=== PATIENT | male | born 1985 | race Caucasian/White ===

== ENCOUNTER 2021-09-02 11:59 | Emergency (ER) | payer OTHER, SELFPAY ==
[2021-09-02 12:29] VITALS: BP 131/70; PULSE 100; RESP 18; TEMP 36.8; O2SAT 98
--- NOTE | 2021-09-02 12:42 | ED.ABDPAIN ---
HPI - Abdominal Pain General Chief Complaint: Abdominal Pain Stated Complaint: abdominal pain Time Seen by Provider: 09/02/21 12:39 Source: patient, RN notes reviewed and old records reviewed Mode of arrival: ambulatory Limitations: no limitations History of Present Illness HPI narrative: 35-year-old male presents to [facility] with 2-day history of left abdominal pain which has increased in intensity today. Patient reports that his pain started in his left testicle and now pain is localized in his left lower abdomen and goes toward his right abdomen. Patient denies any nausea or vomiting, frequent stools denies any constipations. Patient is unable to stand erect due to acute abdominal pain.Patient denies any trauma to his abdomen, denies any burning or pain with urination, denies any flank pain. Related Data Home Medications Medication Instructions Recorded Confirmed dextroamphetamine-amphetamine 20 mg PO DAILY 09/02/21 09/02/21 [Adderall XR] Allergies Allergy/AdvReac Type Severity Reaction Status Date / Time No Known Allergies Allergy Verified 09/02/21 13:06 Review of Systems Review of Systems: CONSTITUTIONAL: Denies fever, chills, or sweats. EYES: Denies visual changes, redness, or discharge. ENT: Denies rhinorrhea, congestion, sore throat, or otalgia. CARDIOVASCULAR: Denies chest pain, palpitations, or edema. RESPIRATORY: Denies cough or dyspnea. GASTROINTESTINAL: positive for lower left acute abdominal pain with some radiation towards right abdomen also some initial left testicle pain,no nausea or vomiting, no diarrhea but frequent stools. GENITOURINARY: Denies dysuria or hematuria, some left testicle pain initially SKIN: Denies rash or itching. MUSCULOSKELETAL: Denies back pain, joint pain, or myalgia. NEUROLOGIC: Denies headache, numbness, or weakness. PSYCHIATRIC: Denies anxiety or depression. All systems reviewed & are unremarkable except as noted in HPI and below PMFSH Past Medical History Medical History (Updated 09/02/21 @ 12:46 by Isi Liao NP) ADHD (attention deficit hyperactivity disorder) Surgical History Surgical History (Updated 09/02/21 @ 12:44 by Isi Liao NP) H/O vasectomy 8 months ago Hx of appendectomy Social History Social History (Updated 09/02/21 @ 14:10 by Isi Liao NP) Smoking status: Never smoker Alcohol intake: current Alcohol use details: social Substance use: never Living arrangements: with family Gender identity (if verbalized by the patient): Male Comments At time of signature, agree with nursing past medical, surgical, social and family history. There is no relevant family history pertinent to the presenting complaint Exam Narrative: GENERAL:ill-appearing, well-nourished, and in no some acute distress. HEAD: Normocephalic, atraumatic. EYES: PERRLA and EOMI. ENT: Nares clear, no rhinorrhea or epistaxis. Mucous membranes moist. NECK: Supple.no lymphadenopathy CHEST: Clear to auscultation. No respiratory distress.SAO2 98% on room air HEART: Regular rate and rhythm. No murmur heard. Normal peripheral pulses. ABDOMEN: Soft, tender to left abdomen, distended, normal active bowel sounds. EXTREMITIES: Normal range of motion. No edema. SKIN: Warm, dry, no rash. NEURO: No focal deficits. Alert and oriented x3. Course Vital Signs Vital signs: Vital Signs Temperature 36.8 C 09/02/21 12:29 Pulse Rate 100 09/02/21 12:29 Respiratory Rate 18 09/02/21 12:29 Blood Pressure 131/70 09/02/21 12:29 Pulse Oximetry 98 09/02/21 12:29 Temperature 36.8 C 09/02/21 12:29 Pulse Rate 100 09/02/21 12:29 Respiratory Rate 18 09/02/21 12:29 Blood Pressure 131/70 09/02/21 12:29 Pulse Oximetry 98 09/02/21 12:29 Transfer Transfered to: [facility] Transportation: Other (private car) Transfer rationale: acute left abdominal pain and left testicle pain Accepting physician: Urbano Brewer comments: Patient lin
== END 2021-09-02 12:42 | disposition short-term general hospital (02) ==
PROVIDERS: Emergency Provider Registered Nurse; PCP Internal Medicine
DX: R10.32 Left lower quadrant pain (principal); F90.9 Attention-deficit hyperactivity disorder, unspecified type; Z98.52 Vasectomy status
CPT/HCPCS: 99212; G0463

== ENCOUNTER 2021-09-02 12:55 | Emergency (ER) | payer OTHER, SELFPAY ==
--- NOTE | ~2021-09-02 | CT_ITS ---
EXAMINATION: CT abdomen pelvis w con INDICATION: Left lower quadrant pain TECHNIQUE: Computed tomographic images of the abdomen and pelvis were obtained after the administrati on of 100 cc of Omnipaque 350 intravenous contrast. The dose-length product (DLP) was 1720.09 mGy-cm. Automated exposure control and iterative reconstruction technique were employed. COMPARISON: None available FINDINGS: The lung bases are clear. The heart size is normal. The spleen, pancreas, gallbladder, and adrenal glands are normal. Subcapsular areas of increased attenuation of the liver likely reflect tra nsient hepatic attenuation difference. The kidneys are unremarkable. No pathologically enlarged abdom inal or pelvic lymph nodes are identified. There is no free intraperitoneal gas or evidence of bowel obstruction. Colonic diverticula are noted. There is an area of diverticular inflammation in the dist al descending colon without evidence of perforation or abscess. A small fat-containing umbilical bruno ia is noted. IMPRESSION: 1. Acute diverticulitis of the distal descending colon. Reviewed, dictated and finalized at location B.
[2021-09-02 13:03] VITALS: BP 137/85; PULSE 107; RESP 17; TEMP 36.3; O2SAT 96
[2021-09-02 14:11] LABS: Basophils Absolute Auto 0.1 K/mm3 (0.0-0.1); Basophils Percent Auto 0.4 % (0.2-1.2); Eosinophils Absolute Auto 0.1 K/mm3 (0-0.3); Hemoglobin 16.6 g/dL (14.0-18.0); Immature Granulocyte Absolute 0.05 K/mm3 (0.00-0.031); Immature Granulocyte Percent A 0.4 % (0-0.5); Lymphocytes Absolute Auto 2.58 K/mm3 (0.9-3.2); Mean Corpuscular HGB Conc 34.6 g/dl (32-36); Mean Corpuscular Volume 86.8 fl (80-100); Mean Platelet Volume 11.7 fl (7.4-10.4); Monocytes Absolute Auto 0.9 K/mm3 (0.1-0.6); Monocytes Percent Auto 6.8 % (2.6-8.5); Neutrophils Absolute Auto 9.9 K/mm3 (1.3-6.7); Neutrophils Percent Auto 72.4 % (45.5-73.1); Platelet Count Result 241 k/mm3 (150-375); Red Blood Count 5.53 M/mm3 (4.6-6.20); Red Cell Distribution Width 12.9 % (11.5-14.5); White Blood Count 13.6 K/mm3 (4.5-10.0)
[2021-09-02 14:18] LABS: Add Urine Microscopic? NO; Appearance Urine Clear (Clear); Bilirubin Urine Negative (Negative); Blood Urine Negative (Negative); Color Urine Yellow (Yellow); Glucose Urine UA Negative (Negative); Ketones Urine Negative (Negative); Leukocyte Esterase Ur Negative LEU/UL (Negative); Nitrate Urine Negative (Negative); Protein Urine Negative (Negative); Urobilinogen Urine Negative mg/dL (<2.0)
[2021-09-02 14:27] LABS: Alanine Aminotransferase 64 U/L (4-50); Albumin Level 5.2 g/dL (3.5-5.1); Alkaline Phosphatase 79 U/L (38-126); Anion Gap 13 mmol/L (8-16); Aspartate Amino Transferase 31 U/L (17-59); Bilirubin,Total 0.7 mg/dL (0.2-1.3); Blood Urea Nitrogen 16 mg/dL (9-20); Calcium 10.3 mg/dL (8.4-10.2); Carbon Dioxide 25 mmol/L (22-30); Chloride 101 mmol/L (98-107); Estimated CRCL calculation 132 ml/min; Estimated Glomerular Filt Rate > 60; Glucose 88 mg/dL (65-110); Lipase 53 U/L (23-300); Sodium 139 mmol/L (137-145)
[2021-09-02] MEDS: LACTATED RINGERS 1,000 ML 999 ML IV CONT (14:33)
[2021-09-02] MEDS: fentaNYL CITRATE INJ (*CRX) 100 MCG/2 ML VIAL 50 MCG IV PUSH (14:33)
[2021-09-02] MEDS: metroNIDAZOLE 500 MG/ISO 100ML 500 MG/100 ML BAG 100 MG IVPB (15:53)
[2021-09-02 15:59] VITALS: BP 127/78; PULSE 90; RESP 16; O2SAT 99
[2021-09-02 16:00] VITALS: BP 121/74; PULSE 88; RESP 16; O2SAT 97
[2021-09-02] MEDS: HYDROcodone/acetaminophen (*CRX) 7.5-325 MG TABLET 1 TAB PO (16:10)
--- NOTE | 2021-09-02 16:17 | ED.ABDPAIN ---
HPI - Abdominal Pain General Chief Complaint: Abdominal Pain Stated Complaint: LLQ, testicular pain Time Seen by Provider: 09/02/21 13:03 Source: patient Mode of arrival: ambulatory Limitations: no limitations History of Present Illness HPI narrative: 35-year-old male Presents complaining of a 2-day history of of pain in his lower abdomen which is getting worse He felt like the pain began kind of low almost in the testicle and is since moved up and kind of settled a little bit higher up in the left lower quadrant It is much worse if he moves around or pushes on it, he had a bowel movement that did not relieve it, and he does not have any urinary symptoms He has not had a fever, he has not vomited, and doesn't report diarrhea or constipation Related Data Home Medications Medication Instructions Recorded Confirmed dextroamphetamine-amphetamine 20 mg PO BID 09/02/21 09/02/21 [Adderall XR] Allergies Allergy/AdvReac Type Severity Reaction Status Date / Time No Known Allergies Allergy Verified 09/02/21 13:06 Review of Systems Review of Systems: All systems reviewed & are unremarkable except as noted in HPI and below Constitutional: Constitutional: Reports no additional constitutional complaints, Denies chills, Denies fever(s) and Denies headache(s) Eyes: Eyes: Reports no additional eye complaints and Denies change in vision ENT: Denies headache(s) and Denies sore throat Cardiovascular: Cardiovascular: Denies chest pain and Denies dyspnea Respiratory: Respiratory: Denies cough and Denies dyspnea Gastrointestinal: Gastrointestinal: Reports abdominal pain, Denies bloating, Denies diarrhea and Denies vomiting Genitourinary: Genitourinary: Denies dysuria and Denies urinary frequency Musculoskeletal: Musculoskeletal: Denies deformity, Denies arthralgias, Denies joint swelling and Denies numbness Integumentary/Breasts: Skin/Breast: Denies rash and Denies wounds Neurologic: Denies headache(s), Denies focal weakness and Denies numbness Psychiatric: Psychiatric: Reports no additional psychiatric complaints Endocrine: Endocrine: Reports no additional endocrine complaints Hematologic/Lymphatic: Hematologic/Lymphatic: Reports no additional hematologic/lymphatic complaints Allergic/Immunologic: Allergic/Immunologic: Reports no additional allergic/immunologic complaints PMFSH Past Medical History Medical History ADHD (attention deficit hyperactivity disorder) Surgical History Surgical History H/O vasectomy 8 months ago Hx of appendectomy Social History Social History Smoking status: Never smoker Alcohol intake: current Alcohol use details: social Substance use: never Living arrangements: with family Gender identity (if verbalized by the patient): Male Exam Const: General: cooperative, healthy appearing, no acute distress and alert Orientation/consciousness: patient oriented x3 (alert) HENMT: Head: normal to inspection, normocephalic and atraumatic Ears: external ears normal General nose exam: no epistaxis Eyes: Conjunctivae: conjunctivae normal EOM: EOMs intact bilaterally Neck: Neck: normal visual inspection, supple and no JVD Resp: Effort & Inspection: normal respiratory effort and not labored Auscultation: other (BS =) GI: GI Palp: Yes Soft to palpation, Yes Tenderness to palpation present (GI) (Well localized in left lower quadrant), Yes Guarding due to palpation present (GI) and Yes Rebound tenderness present : Other: She has slight tenderness in the left testicle but no swelling lumps lesions or hernia Skin: General skin exam: normal color and no rashes or lesions noted Neuro: General: patient oriented x3 (alert) and moves all extremities Speech: normal speech Extrem: General: normal to inspection and no pedal
[2021-09-02] MEDS: CIPROFLOXACIN 400 MG/D5W 200ML 200 ML 200 MG IVPB (16:57)
[2021-09-02 17:58] VITALS: BP 142/86; PULSE 84; RESP 15; O2SAT 98
== END 2021-09-02 18:00 | disposition home or self-care (01) ==
PROVIDERS: Emergency Medicine; Emergency Provider Emergency Medicine; PCP Internal Medicine
DX: K57.32 Diverticulitis of large intestine without perforation or abscess without bleeding (principal); F90.9 Attention-deficit hyperactivity disorder, unspecified type
CPT/HCPCS: 36415; 74177; 80053; 81003; 83690; 85025; 96361; 96365; 96367; 96375; 99284; A9270; J0744; J3010; J7120; Q9967

== ENCOUNTER → 2023-01-16 08:57 | Outpatient (CLI) | payer OTHER, SELFPAY ==
--- NOTE | ~2023-01-16 | MR_ITS ---
EXAMINATION: MR abdomen wo/w con DATE: 01/16/2023 09:53 INDICATION: Liver lesion TECHNIQUE: Magnetic resonance imaging (MRI) of the abdomen was performed without and with 20 mL Multi nannette intravenous contrast. Sequences included coronal T2-weighted SS-FSE, coronal and axial FS 2D-F IESTA, axial STIR FSE, axial T2-weighted SS-FSE, axial T2-weighted FS SS-FSE, axial diffusion-weighte d SE, axial dual-echo T1-weighted FSPGR, and axial and coronal T1-weighted LAVA. Postcontrast axial T 1-weighted LAVA images were obtained in a time course. Postcontrast coronal T1-weighted LAVA images w ere obtained. COMPARISON: CT abdomen pelvis dated 09/02/2021 FINDINGS: Heart size is normal. No pericardial or pleural effusion. Bilateral gynecomastia. 1.7 cm T2 hyperinte nse hemangioma with lobular margins and peripheral discontiguous puddling of contrast on the earliest postcontrast images which gradually fills in centrally on delayed images. No other hepatic lesions i dentified. Gallbladder, pancreas, spleen, bilateral adrenal glands and kidneys are normal. Incidental ly noted is an accessory right renal artery. Visualized portion of the bowels are unremarkable. No pa thologically enlarged abdominal lymphadenopathy. Visualized bones are unremarkable. IMPRESSION: 1. 1.7 cm hepatic hemangioma. Reviewed, dictated and finalized at location A.
== END ==
PROVIDERS: PCP Physician Assistant Medical; Visit Provider Physician Assistant Medical
DX: K76.9 Liver disease, unspecified (principal)
CPT/HCPCS: 74183; A9577